=== PATIENT | male | born 1970 | race Caucasian/White ===

== ENCOUNTER 2021-09-30 02:52 | Emergency (ER) | payer OTHER ==
[~2021-09-30] VITALS: Ht 177.8 cm; Wt 77.1 kg
--- NOTE | 2021-09-30 03:00 | NUR ---
C/O MIDSTERNAL CHESTPAIN 5/10 NON RADIATING. 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
--- NOTE | 2021-09-30 03:30 | NUR ---
LABS COLLECTED AND SENT TO LAB
[2021-09-30 04:23] LABS: BASOPHILS % (AUTO) 0.6 % (0.0-2.0); HEMATOCRIT 41 % (39-51); HEMOGLOBIN 13.7 g/dL (13.5-17.5); LYMPHOCYTES # (AUTO) 1.2 K/uL (0.8-4.8); MEAN CORPUSCULAR HGB CONC 34 g/dl (31.0-36.0); MEAN CORPUSCULAR VOLUME 103 fL (80-96); MONOCYTES # (AUTO) 0.6 K/uL (0.1-1.30); MONOCYTES % (AUTO) 17.5 % (2.0-12.0); NEUTROPHILS # (AUTO) 1.5 K/uL (1.8-8.9); NEUTROPHILS % (AUTO) 42.9 % (43.0-81.0); PLATELET COUNT (AUTO) 89 K/uL (150-450); RED BLOOD CELL COUNT(AUTO) 3.95 MIL/uL (4.5-6.0); WHITE BLOOD COUNT (AUTO) 3.6 K/uL (4.3-11.0)
[2021-09-30 04:24] LABS: CALCIUM, SERUM 8.5 mg/dL (8.5-10.1); CARBON DIOXIDE 28 mmol/L (21-32); CHLORIDE 105 mmol/L (98-107); CREATININE 0.7 mg/dL (0.6-1.3); GLUCOSE 88 mg/dL (74-106); POTASSIUM 3.5 mmol/L (3.5-5.1); SODIUM SERUM 142 mmol/L (136-145); UREA NITROGEN, BLOOD 7 mg/dL (7-18)
[2021-09-30] MEDS ORDERED: CT SWABBABLE VALVE TRANS SET 1 EA INFUS.SET MC ONE (04:29)
[2021-09-30] MEDS ORDERED: IV NS 0.9% 250 ML IV ONE (04:29)
[2021-09-30] MEDS ORDERED: IOHEXOL-350 100 ML VIAL IV ONE (04:29)
[2021-09-30 07:27] VITALS: BP 150/58
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
[2021-09-30 09:21] LABS: EOSINOPHILS % (MANUAL) 4 % (0-4); LYMPHOCYTES % (MANUAL) 39 % (16-48); MONOCYTES % (MANUAL) 13 % (0-11.0); NEUTROPHILS % (MANUAL) 44 (42-76)
== END 2021-09-30 07:28 | disposition home or self-care (01) ==
LOC: ER 02:56
DX: R07.89 Other chest pain (principal); D69.6 Thrombocytopenia, unspecified; Z86.711 Personal history of pulmonary embolism
CPT/HCPCS: 36415; 71045; 71275; 80048; 84484 ×2; 85007; 85025; 93005 ×2; 93970; 99285; J7050; Q9967

== ENCOUNTER 2022-08-24 22:45 | Emergency (ER) | payer OTHER ==
[~2022-08-24] VITALS: Ht 198.1 cm; Wt 99.8 kg
[2022-08-24 22:53] VITALS: BP 122/80
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
--- NOTE | 2022-08-24 22:59 | NUR ---
URINE COLLECTED AND SENT TO LAB
--- NOTE | 2022-08-24 23:22 | NUR ---
Patient discharged to home in stable condition. Written and verbal after care instructions given. Patient verbalizes understanding of instruction.
== END 2022-08-24 23:22 | disposition home or self-care (01) ==
LOC: ER 22:47
DX: F10.129 Alcohol abuse with intoxication, unspecified (principal); Y90.9 Presence of alcohol in blood, level not specified

== ENCOUNTER 2022-08-25 00:09 | Emergency (ER) | payer OTHER ==
[~2022-08-25] VITALS: Ht 198.1 cm; Wt 99.8 kg
[2022-08-25 00:20] VITALS: BP 145/74
--- NOTE | 2022-08-25 00:24 | NUR ---
Patient eloped from facility. ER MD notified.
== END 2022-08-25 00:24 | disposition left against medical advice (07) ==
LOC: ER 00:18
DX: Z00.8 Encounter for other general examination (principal); Z59.00 Homelessness unspecified

== ENCOUNTER 2022-11-05 23:27 | Emergency (ER) | payer OTHER ==
[~2022-11-05] VITALS: Ht 195.6 cm; Wt 99.8 kg
--- NOTE | 2022-11-05 23:35 | NUR ---
XR AT BEDSIDE
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
--- NOTE | 2022-11-05 23:50 | NUR ---
EKG DONE AT BEDSIDE
--- NOTE | 2022-11-05 23:59 | NUR ---
LEARNING SUPPORT AIDE AT BEDSIDE
[2022-11-06 00:59] LABS: BASOPHILS # (AUTO) 0.1 K/uL (0.0-0.2); EOSINOPHILS % (AUTO) 1.7 % (0.0-6.0); HEMATOCRIT 42 % (39-51); HEMOGLOBIN 14.2 g/dL (13.5-17.5); LYMPHOCYTES # (AUTO) 1.5 K/uL (0.8-4.8); LYMPHOCYTES % (AUTO) 26.8 % (20.0-44.0); MEAN CORPUSCULAR HGB CONC 34 g/dl (31.0-36.0); MEAN CORPUSCULAR VOLUME 103 fL (80-96); MONOCYTES # (AUTO) 0.4 K/uL (0.1-1.30); MONOCYTES % (AUTO) 7.4 % (2.0-12.0); NEUTROPHILS # (AUTO) 3.6 K/uL (1.8-8.9); NEUTROPHILS % (AUTO) 63.1 % (43.0-81.0); PLATELET COUNT (AUTO) 217 K/uL (150-450); WHITE BLOOD COUNT (AUTO) 5.8 K/uL (4.3-11.0)
[2022-11-06 01:33] LABS: ALANINE AMINOTRANSFERASE 42 U/L (12-78); ALBUMIN 3.7 g/dL (3.4-5.0); ALKALINE PHOSPHATASE 76 U/L (46-116); ASPARTATE AMINOTRANSFERASE 22 U/L (15-37); BILIRUBIN,DIRECT 0.1 mg/dL (0.0-0.2); BILIRUBIN,TOTAL 0.2 mg/dL (0.2-1.0); CALCIUM, SERUM 8.5 mg/dL (8.5-10.1); CARBON DIOXIDE 21 mmol/L (21-32); CHLORIDE 107 mmol/L (98-107); GLUCOSE 119 mg/dL (74-106); POTASSIUM 3.8 mmol/L (3.5-5.1); SODIUM SERUM 141 mmol/L (136-145); TOTAL PROTEIN, SERUM 7.6 g/dL (6.4-8.2); UREA NITROGEN, BLOOD 14 mg/dL (7-18)
--- NOTE | 2022-11-06 02:00 | NUR ---
PT APPEARS TO BE RESTING W/ EYES CLOSED, CHEST RISES AND FALLS, IN NAD.
[2022-11-06 04:42] VITALS: BP 111/82
== END 2022-11-06 04:42 | disposition home or self-care (01) ==
LOC: ER 23:29
DX: R07.89 Other chest pain (principal); F10.129 Alcohol abuse with intoxication, unspecified; Y90.9 Presence of alcohol in blood, level not specified
CPT/HCPCS: 36415; 71045-TC; 80048-TC; 80076-TC; 84484-TC; 85025-TC; 85730-TC